=== PATIENT | male | born 2000 | race Caucasian/White ===

== ENCOUNTER 2019-03-22 03:22 | Emergency (ER) | payer SELFPAY ==
[~2019-03-22] VITALS: Ht 193 cm; Wt 93.0 kg
[~2019-03-22 03:22] MED LIST: DULERA 100 MCG/13 GM INH
[2019-03-22] MEDS ORDERED: Prednisone20 MG PO (04:54)
== END 2019-03-22 05:30 | disposition home or self-care (01) ==
LOC: ER 03:22
DX: J98.01 Acute bronchospasm (principal); Z91.013 Allergy to seafood; Z91.018 Allergy to other foods
CPT/HCPCS: 71046; 94644; 99285-25; J7512